=== PATIENT | female | born 1980 | race Caucasian/White ===

== ENCOUNTER → 2024-10-18 15:46 | Outpatient (REF) | payer OTHER, SELFPAY | LOC: PNTC 15:46 | PROVIDERS: ATTENDING PHYSICIAN Nurse Practitioner Family | DX: O09.30 Supervision of pregnancy with insufficient antenatal care, unspecified trimester (principal); O09.529 Supervision of elderly multigravida, unspecified trimester; O34.10 Maternal care for benign tumor of corpus uteri, unspecified trimester; O43.129 Velamentous insertion of umbilical cord, unspecified trimester | CPT/HCPCS: 76811 ==

== ENCOUNTER → 2024-11-15 09:52 | Outpatient (REF) | payer OTHER, SELFPAY | LOC: PNTC 09:52 | PROVIDERS: ATTENDING PHYSICIAN Obstetrics & Gynecology | DX: O09.519 Supervision of elderly primigravida, unspecified trimester (principal); O43.199 Other malformation of placenta, unspecified trimester | CPT/HCPCS: 76816 ==

== ENCOUNTER → 2024-12-13 09:17 | Outpatient (REF) | payer OTHER, SELFPAY | LOC: PNTC 09:17 | PROVIDERS: ATTENDING PHYSICIAN Obstetrics & Gynecology | DX: O09.529 Supervision of elderly multigravida, unspecified trimester (principal); O43.199 Other malformation of placenta, unspecified trimester | CPT/HCPCS: 59025; 76816 ==

== ENCOUNTER → 2024-12-27 09:33 | Outpatient (REF) | payer OTHER, SELFPAY | LOC: PNTC 09:33 | PROVIDERS: ATTENDING PHYSICIAN Obstetrics & Gynecology | DX: O09.529 Supervision of elderly multigravida, unspecified trimester (principal) | CPT/HCPCS: 59025; 76815 ==

== ENCOUNTER 2025-01-03 10:10 | Observation (INO) | payer OTHER, SELFPAY ==
[2025-01-03 10:58] LABS: Urine Albumin 2+ (Neg - Trace); Urine Bilirubin Negative (Negative); Urine Character Slightly Cloudy (Clear); Urine Color Yellow; Urine Glucose 1+ (Negative); Urine Ketone Negative (Negative); Urine Leukocyte 1+ (Negative); Urine Nitrite Negative (Negative); Urine Occult Blood Negative (Negative); Urine Specific Gravity 1.025 (<1.030); Urine Urobilinogen 1+ (Neg - 1+)
[2025-01-03 11:00] LABS: Hematocrit 33.8 % (37.0-47.0); Hemoglobin 11.8 g/dL (12.0-16.0); Mean Corp Hgb Conc. 34.9 g/dL (33.0-37.0); Mean Corpuscular Volume 91.6 fL (81.0-99.0); Mean Platelet Volume 9.7 fL (7.4-10.4); Platelet Count 298 10^3/uL (130-400); Red Blood Cell Count 3.69 10^6/uL (4.20-5.40); Red Cell Dist. Width 12.4 % (11.5-14.5)
[2025-01-03 11:10] LABS: ALT (SGPT) 12 U/L (0-35); AST (SGOT) 18 U/L (14-36); Albumin 3.2 g/dl (3.5-5.0); Alkaline Phosphatase 201 U/L (38-126); Blood Urea Nitrogen 10 mg/dl (7-17); Calcium 9.2 mg/dl (8.4-10.2); Carbon Dioxide 24 mmol/L (22-30); Chloride 104 mmol/L (98-107); Glucose 113 mg/dl (70-99); Potassium 3.8 mmol/L (3.5-5.1); Sodium 133 mmol/L (135-145); Total Bilirubin 0.5 mg/dl (0.2-1.3); Uric Acid 3.2 mg/dl (2.5-6.2); eGFR > 60.00
[2025-01-03 11:33] VITALS: BP 152/94; BMI 28.6
[2025-01-03 11:35] LABS: Urine Squamous Cell >30 /LPF (Few)
[2025-01-03 11:36] LABS: Urine Amorphous Seen; Urine Urothelial Cell 0-2 /LPF (FEW)
[2025-01-03 11:38] LABS: Urine Red Blood Cell 0-2 /HPF (0-2)
[2025-01-03 11:39] LABS: Urine Bacteria Many (Negative)
[2025-01-03 12:26] LABS: Protein/creatinine Ratio 0.1; Urine Protein 20 mg/dl
== END 2025-01-03 13:00 | disposition home or self-care (01) ==
LOC: PNTC-IN 10:10
PROVIDERS: ADMITTING PHYSICIAN Obstetrics & Gynecology; ATTENDING PHYSICIAN Obstetrics & Gynecology
DX: O13.3 Gestational [pregnancy-induced] hypertension without significant proteinuria, third trimester (principal); Z3A.35 35 weeks gestation of pregnancy; O09.529 Supervision of elderly multigravida, unspecified trimester
CPT/HCPCS: 76815; 80053; 81003; 81015; 82570; 84156; 84550; 85027; G0378

== ENCOUNTER 2025-01-08 17:12 | Observation (INO) | payer OTHER, SELFPAY ==
[2025-01-08 17:17] VITALS: BP 158/101; BMI 28.5
[2025-01-08 17:31] LABS: % Basophils 0.3 % (0-2); % Eosinophils 2.2 % (0-6); % Immature Granulocytes 0.4 % (0-0.5); % Lymphocytes 18.7 % (20.5-51.1); % Monocytes 4.8 % (1.7-9.3); % Neutrophils 73.6 % (42.2-75.2); Absolute Eosinophils 0.3 10^3/uL (0-0.7); Absolute Immature Granulocytes 0.1 10^3/uL (0-0.05); Absolute Lymphocytes 2.2 10^3/uL (1.2-3.4); Absolute Monocytes 0.6 10^3/uL (0.1-0.6); Absolute Neutrophils 8.5 10^3/uL (1.4-6.5); Hematocrit 35.9 % (37.0-47.0); Hemoglobin 12.3 g/dL (12.0-16.0); Mean Corp Hgb Conc. 34.3 g/dL (33.0-37.0); Mean Corpuscular Hgb 31.6 pg (27.0-31.0); Mean Corpuscular Volume 92.3 fL (81.0-99.0); Mean Platelet Volume 9.6 fL (7.4-10.4); Nucleated Red Blood Cells % 0 %; Platelet Count 301 10^3/uL (130-400); Red Blood Cell Count 3.89 10^6/uL (4.20-5.40); Red Cell Dist. Width 12.6 % (11.5-14.5); White Blood Cell Count 11.6 10^3/uL (4.8-10.8)
[2025-01-08 17:48] LABS: ALT (SGPT) 13 U/L (0-35); AST (SGOT) 20 U/L (14-36); Albumin 3.6 g/dl (3.5-5.0); Alkaline Phosphatase 247 U/L (38-126); Blood Urea Nitrogen 12 mg/dl (7-17); Calcium 9.2 mg/dl (8.4-10.2); Carbon Dioxide 22 mmol/L (22-30); Chloride 104 mmol/L (98-107); Estimated Creatinine Clearance 108 ml/min; Glucose 90 mg/dl (70-99); Potassium 4.4 mmol/L (3.5-5.1); Sodium 132 mmol/L (135-145); Total Bilirubin 0.6 mg/dl (0.2-1.3); Total Protein 6.5 g/dl (6.3-8.2); eGFR > 60.00
[2025-01-08 18:02] LABS: Urine Albumin 2+ (Neg - Trace); Urine Bilirubin Negative (Negative); Urine Character Slightly Cloudy (Clear); Urine Color Yellow; Urine Glucose Negative (Negative); Urine Ketone Negative (Negative); Urine Leukocyte 1+ (Negative); Urine Nitrite Negative (Negative); Urine Occult Blood Negative (Negative); Urine Specific Gravity 1.025 (<1.030); Urine Urobilinogen 1+ (Neg - 1+)
[2025-01-08 18:11] LABS: Urine Bacteria Moderate (Negative); Urine Red Blood Cell 0-2 /HPF (0-2); Urine Squamous Cell >30 /LPF (Few)
[2025-01-08 18:18] LABS: Urine Protein 7 mg/dl
== END 2025-01-08 20:00 | disposition home or self-care (01) ==
LOC: LDRP 17:12
PROVIDERS: Obstetrics & Gynecology; ADMITTING PHYSICIAN Obstetrics & Gynecology
DX: O13.3 Gestational [pregnancy-induced] hypertension without significant proteinuria, third trimester (principal); Z3A.35 35 weeks gestation of pregnancy; R51.9 Headache, unspecified; O09.523 Supervision of elderly multigravida, third trimester; O43.123 Velamentous insertion of umbilical cord, third trimester; H90.42 Sensorineural hearing loss, unilateral, left ear, with unrestricted hearing on the contralateral side; D25.9 Leiomyoma of uterus, unspecified; O99.343 Other mental disorders complicating pregnancy, third trimester; F41.9 Anxiety disorder, unspecified; F32.A Depression, unspecified; Z81.1 Family history of alcohol abuse and dependence; Z82.69 Family history of other diseases of the musculoskeletal system and connective tissue; Z63.79 Other stressful life events affecting family and household; Z80.41 Family history of malignant neoplasm of ovary
CPT/HCPCS: 80053; 81003; 81015; 82570; 84156; 85025; 86850; 86900; 86901; G0378

== ENCOUNTER → 2025-01-10 09:58 | Outpatient (REF) | payer OTHER, SELFPAY | LOC: PNTC 09:58 | PROVIDERS: ATTENDING PHYSICIAN Obstetrics & Gynecology | DX: O09.529 Supervision of elderly multigravida, unspecified trimester (principal) | CPT/HCPCS: 59025; 76816 ==

== ENCOUNTER 2025-01-16 08:20 | Inpatient (IN) | payer OTHER, SELFPAY ==
[2025-01-16 09:01] LABS: % Basophils 0.3 % (0-2); % Eosinophils 3.3 % (0-6); % Immature Granulocytes 0.5 % (0-0.5); % Lymphocytes 22.2 % (20.5-51.1); % Neutrophils 67.7 % (42.2-75.2); Absolute Eosinophils 0.3 10^3/uL (0-0.7); Absolute Immature Granulocytes 0.1 10^3/uL (0-0.05); Absolute Lymphocytes 2.1 10^3/uL (1.2-3.4); Absolute Monocytes 0.6 10^3/uL (0.1-0.6); Absolute Neutrophils 6.3 10^3/uL (1.4-6.5); Hematocrit 31.6 % (37.0-47.0); Hemoglobin 11.2 g/dL (12.0-16.0); Mean Corp Hgb Conc. 35.4 g/dL (33.0-37.0); Mean Corpuscular Hgb 31.7 pg (27.0-31.0); Mean Corpuscular Volume 89.5 fL (81.0-99.0); Mean Platelet Volume 10.2 fL (7.4-10.4); Nucleated Red Blood Cells % 0 %; Platelet Count 295 10^3/uL (130-400); Red Blood Cell Count 3.53 10^6/uL (4.20-5.40); Red Cell Dist. Width 12.5 % (11.5-14.5); White Blood Cell Count 9.3 10^3/uL (4.8-10.8)
[2025-01-16 09:36] LABS: ALT (SGPT) 16 U/L (0-35); AST (SGOT) 24 U/L (14-36); Albumin 3.1 g/dl (3.5-5.0); Alkaline Phosphatase 237 U/L (38-126); Blood Urea Nitrogen 12 mg/dl (7-17); Calcium 8.9 mg/dl (8.4-10.2); Carbon Dioxide 18 mmol/L (22-30); Chloride 107 mmol/L (98-107); Glucose 93 mg/dl (70-99); Potassium 4.3 mmol/L (3.5-5.1); Sodium 133 mmol/L (135-145); Total Bilirubin 0.5 mg/dl (0.2-1.3); Total Protein 5.9 g/dl (6.3-8.2); eGFR > 60.00
[2025-01-16 11:16] LABS: Protein/creatinine Ratio 0.1; Urine Protein 14 mg/dl
[2025-01-16] MEDS: TRANDATE 20 MG IV (13:25)
[2025-01-16] MEDS: LR 1000 IV (13:48)
[2025-01-16] MEDS: MAGNESIUM SULFATE 100 IV (13:49)
[2025-01-16] MEDS: MAGNESIUM SULFATE 40 GRAM 1000 IV (14:13)
[2025-01-16] MEDS: CYTOTEC 25 MICROGRAM VAG (15:31)
[2025-01-16 15:32] VITALS: BP 154/98; BMI 28.6
[2025-01-16] MEDS: TYLENOL 1000 MG PO (17:02)
[2025-01-16] MEDS: CYTOTEC 50 MICROGRAM PO ×2 (19:38→23:21)
[2025-01-16] MEDS: TRANDATE 200 MG PO (21:58)
[2025-01-16] MEDS: STADOL 1 MG IV (23:15)
[2025-01-17] MEDS: LR 1000 IV ×2 (02:09→14:31)
[2025-01-17] MEDS: TUMS CHEWABLE TABLET 400 MG PO ×4 (02:18→19:56)
[2025-01-17] MEDS: CYTOTEC 50 MICROGRAM PO (03:29)
[2025-01-17] MEDS: ZOFRAN 4 MG IV ×2 (04:07→21:58)
[2025-01-17 05:40] LABS: Hematocrit 31.3 % (37.0-47.0); Hemoglobin 10.9 g/dL (12.0-16.0); Mean Corp Hgb Conc. 34.8 g/dL (33.0-37.0); Mean Corpuscular Hgb 31.5 pg (27.0-31.0); Mean Corpuscular Volume 90.5 fL (81.0-99.0); Mean Platelet Volume 9.8 fL (7.4-10.4); Platelet Count 249 10^3/uL (130-400); Red Blood Cell Count 3.46 10^6/uL (4.20-5.40); Red Cell Dist. Width 12.5 % (11.5-14.5); White Blood Cell Count 11.5 10^3/uL (4.8-10.8)
[2025-01-17 06:23] LABS: ALT (SGPT) 14 U/L (0-35); AST (SGOT) 22 U/L (14-36); Albumin 2.8 g/dl (3.5-5.0); Alkaline Phosphatase 244 U/L (38-126); Blood Urea Nitrogen 10 mg/dl (7-17); Calcium 7.1 mg/dl (8.4-10.2); Carbon Dioxide 22 mmol/L (22-30); Chloride 103 mmol/L (98-107); Estimated Creatinine Clearance > 125 ml/min; Glucose 117 mg/dl (70-99); Magnesium 7.3 mg/dl (1.6-2.3); Potassium 4.5 mmol/L (3.5-5.1); Sodium 130 mmol/L (135-145); Total Bilirubin 0.6 mg/dl (0.2-1.3); Total Protein 5.5 g/dl (6.3-8.2); eGFR > 60.00
[2025-01-17] MEDS: PRENATAL PLUS 1 TABLET PO (07:48)
[2025-01-17] MEDS: ADDERALL 10 MG PO (07:48)
[2025-01-17] MEDS: LEXAPRO 20 MG PO (07:48)
[2025-01-17] MEDS: CYTOTEC PO ×3 (08:41→15:52)
[2025-01-17] MEDS: TRANDATE PO (08:41)
[2025-01-17] MEDS: MAGNESIUM SULFATE 40 GRAM 1000 IV (09:14)
[2025-01-17 09:49] LABS: Protein/creatinine Ratio 0.6; Urine Protein 32 mg/dl
[2025-01-17] MEDS: PITOCIN 30 UNITS/NSS 500 ML IV ×2 (14:31→22:53)
[2025-01-17] MEDS: TRANDATE 200 MG PO (19:45)
[2025-01-17] MEDS: FENTANYL/BUPIVACAINE 100 EPIDURAL (20:00)
[2025-01-17] MEDS: SUBLIMAZE 100 MCG EPIDURAL (20:00)
[2025-01-18] MEDS: MAGNESIUM SULFATE 40 GRAM 1000 IV (04:40)
[2025-01-18] MEDS: LR IV (05:43)
[2025-01-18] MEDS: LR 1000 IV ×2 (05:43→18:25)
[2025-01-18 06:14] LABS: Hematocrit 30.8 % (37.0-47.0); Hemoglobin 10.7 g/dL (12.0-16.0)
[2025-01-18 06:52] LABS: ALT (SGPT) 13 U/L (0-35); AST (SGOT) 19 U/L (14-36); Albumin 2.7 g/dl (3.5-5.0); Alkaline Phosphatase 215 U/L (38-126); Blood Urea Nitrogen 11 mg/dl (7-17); Calcium 6.3 mg/dl (8.4-10.2); Carbon Dioxide 23 mmol/L (22-30); Chloride 103 mmol/L (98-107); Estimated Creatinine Clearance 95 ml/min; Glucose 133 mg/dl (70-99); Magnesium 7.9 mg/dl (1.6-2.3); Potassium 4.2 mmol/L (3.5-5.1); Sodium 130 mmol/L (135-145); Total Bilirubin 0.5 mg/dl (0.2-1.3); Total Protein 5.2 g/dl (6.3-8.2); eGFR > 60.00
[2025-01-18] MEDS: LEXAPRO 20 MG PO (07:48)
[2025-01-18] MEDS: TRANDATE 200 MG PO ×2 (07:49→20:21)
[2025-01-18] MEDS: PROTONIX 40 MG PO (07:49)
[2025-01-18] MEDS: PRENATAL PLUS 1 TABLET PO (07:49)
[2025-01-18] MEDS: ADDERALL 20 MG PO (07:49)
[2025-01-18 11:38] LABS: Syphilis/T. pallidum Ab Reflex Negative (Negative)
[2025-01-18] MEDS: SENOKOT-S 1 TABLET PO (20:21)
[2025-01-18] MEDS: MOTRIN 600 MG PO (20:21)
[2025-01-19] MEDS: MOTRIN 600 MG PO ×3 (04:06→23:34)
[2025-01-19 04:34] LABS: Hematocrit 31.1 % (37.0-47.0); Hemoglobin 10.1 g/dL (12.0-16.0); Mean Corp Hgb Conc. 32.5 g/dL (33.0-37.0); Mean Corpuscular Hgb 30.8 pg (27.0-31.0); Mean Corpuscular Volume 94.8 fL (81.0-99.0); Mean Platelet Volume 9.9 fL (7.4-10.4); Platelet Count 278 10^3/uL (130-400); Red Blood Cell Count 3.28 10^6/uL (4.20-5.40); White Blood Cell Count 9.9 10^3/uL (4.8-10.8)
[2025-01-19 04:50] LABS: ALT (SGPT) 12 U/L (0-35); AST (SGOT) 19 U/L (14-36); Albumin 2.6 g/dl (3.5-5.0); Alkaline Phosphatase 179 U/L (38-126); Blood Urea Nitrogen 12 mg/dl (7-17); Carbon Dioxide 25 mmol/L (22-30); Chloride 107 mmol/L (98-107); Estimated Creatinine Clearance 108 ml/min; Glucose 85 mg/dl (70-99); Potassium 4.3 mmol/L (3.5-5.1); Sodium 134 mmol/L (135-145); Total Bilirubin 0.3 mg/dl (0.2-1.3); Total Protein 5.2 g/dl (6.3-8.2); eGFR > 60.00
[2025-01-19] MEDS: LEXAPRO 20 MG PO (08:14)
[2025-01-19] MEDS: PRENATAL PLUS 1 TABLET PO (08:14)
[2025-01-19] MEDS: ADDERALL 20 MG PO (08:14)
[2025-01-19] MEDS: TRANDATE 200 MG PO ×2 (08:15→11:09)
--- NOTE | 2025-01-19 15:12 | CM ---
CM reviewed chart, mother seen bedside with [facility] worker, Lynette Aguilar ([phone]), and mothers sister. CM provided list of court compiled list of counseling services, signed by mother, placed in chart. Mother
reports she has been working with her current therapist for about seven years and has a good relationship with therapist. Mother reports she is very appreciative of adoptive mothers support during labor/post . Release of Medical Records to
[facility] signed by mother, placed in chart. Discharge of a minor signed by mother, NAYELI and [facility] CMLynette, signed as witness. If mother is to discharge today, will need signature from [facility] on Discharge of a
Minor form, will need two witness signatures. Adoption CM Lynette aware that if mother is for d/c this evening, she will return to sign the form prior to mother leaving. mother wishes (also stated in plan) to discharge from
hospital with adoptive mother and baby girl, Rosa M.
CM met with adoptive mother, Summer Capps, bedside, seen holding baby girl Rosa M. Adoptive mother aware potential discharge this evening versus tomorrow, adoptive mother is able to remain in hospital if d/c. tomorrow. NAYELI reviewed with nurse,
Alba. ID of [facility] CMLynette, scanned and placed in chart.
Plan; discharge today versus tomorrow, all paperwork signed and placed on chart, will need Lynette ([facility] CM) to sign, time, date Discharge of a Minor prior to d/c
[2025-01-19] MEDS: TRANDATE 400 MG PO (20:23)
[2025-01-20] MEDS: SENOKOT-S 1 TABLET PO (08:42)
[2025-01-20] MEDS: PRENATAL PLUS 1 TABLET PO ×2 (08:43→08:49)
[2025-01-20] MEDS: ADDERALL 20 MG PO (08:43)
[2025-01-20] MEDS: PROTONIX 40 MG PO ×2 (08:49→08:50)
[2025-01-20] MEDS: TRANDATE 400 MG PO (08:50)
--- NOTE | 2025-01-20 13:50 | CM ---
CM reviewed chart, mother seen bedside with Sister who was feeding baby Rosa M, Nurse, Darlene Ojeda. Emotional support provided to mother. All paperwork signed and placed in mothers chart. Mother reports she feels she is in a good head space
today and grateful for support provided by adoptive mother and Hospital staff.
Adoptive Mother Kayleen seen, confirmed car seat/ needs at home for baby. Plan remains home with adoptive mother, all paperwork signed and in baby/mothers chart.
Plan; home with Adoptive mother Kayleen
== END 2025-01-20 12:45 | disposition home or self-care (01) | DRG 807 ==
LOC: LDRP 08:20
PROVIDERS: Obstetrics & Gynecology; ADMITTING PHYSICIAN Obstetrics & Gynecology
PROC: 3E033VJ Introduction of Other Hormone into Peripheral Vein, Percutaneous Approach (ICD-10-PCS; 2025-01-17)
PROC: 10E0XZZ Delivery of Products of Conception, External Approach (ICD-10-PCS; 2025-01-17)
PROC: 3E0P7VZ Introduction of Hormone into Female Reproductive, Via Natural or Artificial Opening (ICD-10-PCS; 2025-01-17)
DX: O14.14 Severe pre-eclampsia complicating childbirth (principal); Z37.0 Single live birth; Z3A.36 36 weeks gestation of pregnancy
CPT/HCPCS: 88307; 80053; 82570; 83735; 84156; 85014; 85018; 85025; 85027; 86780; 86850; 86900; 86901